=== PATIENT | female | born 2000 | race Caucasian/White ===

== ENCOUNTER 2020-09-12 20:08 | Emergency (ER) | payer OTHER ==
[2020-09-13 01:55] LABS: HEMOGLOBIN 12.5 gm/dl (12.3-15.3); RED BLOOD COUNT 4.53 M/UL (4.00-5.10); WHITE BLOOD COUNT 10.7 K/UL (4.5-11.0)
[2020-09-13 02:13] LABS: BUN/CREATININE RATIO 13 (0-10)
[2020-09-13] MEDS ORDERED: ONDANSETRON ODT4 MG SL (02:52)
[2020-09-13] MEDS ORDERED: CEPHALEXIN500 M1 PO (02:52)
== END 2020-09-13 04:14 | disposition home or self-care (01) ==
LOC: ER1 20:08
PROVIDERS: Physician Assistant
DX: O21.9 Vomiting of pregnancy, unspecified (principal); O99.281 Endocrine, nutritional and metabolic diseases complicating pregnancy, first trimester; E86.0 Dehydration; R55 Syncope and collapse; Z3A.01 Less than 8 weeks gestation of pregnancy; O16.1 Unspecified maternal hypertension, first trimester; Z79.899 Other long term (current) drug therapy
CPT/HCPCS: 80053; 81001; 83690; 84702; 85025; 93005; 96374; 96375; 99284; J1200; J2765; J7030

== ENCOUNTER 2021-04-24 16:38 | Inpatient (IN) | payer OTHER ==
[~2021-04-24] VITALS: Ht 160 cm; Wt 62.6 kg
[~2021-04-24 16:38] MED LIST: CEPHALEXIN500 M1 PO; ONDANSETRON ODT4 MG SL
[2021-04-24 17:45] LABS: HEMOGLOBIN 10.5 gm/dl (12.3-15.3); RED BLOOD COUNT 3.78 M/UL (4.00-5.10); WHITE BLOOD COUNT 11.7 K/UL (4.5-11.0)
[2021-04-24 20:01] LABS: BUN/CREATININE RATIO 8 (0-10)
[2021-04-25] MEDS ORDERED: IBUPROFEN800 MG PO (18:37)
[2021-04-25] MEDS ORDERED: COLACE100 MG PO (18:37)
[2021-04-25] MEDS ORDERED: HEMOCYTE324 MG PO (18:37)
[2021-04-26] MEDS ORDERED: PERCOCET 5/325 T1 EA PO (02:09)
[2021-04-26 18:53] LABS: HEMOGLOBIN 8.6 gm/dl (12.3-15.3)
[2021-04-26 19:00] LABS: RED BLOOD COUNT 3.16 M/UL (4.00-5.10); WHITE BLOOD COUNT 20.3 K/UL (4.5-11.0)
[2021-04-27 05:52] LABS: HEMOGLOBIN 9.1 gm/dl (12.3-15.3)
[2021-04-28 10:39] LABS: HEMOGLOBIN 8.3 gm/dl (12.3-15.3); RED BLOOD COUNT 3.02 M/UL (4.00-5.10)
== END 2021-04-28 15:03 | disposition home or self-care (01) | DRG 805 ==
LOC: GENOP 16:38 → OB 17:06
PROVIDERS: Obstetrics & Gynecology; ADMIT Obstetrics & Gynecology
PROC: 10E0XZZ Delivery of Products of Conception, External Approach (ICD-10-PCS; principal; 2021-04-24)
PROC: 10907ZC Drainage of Amniotic Fluid, Therapeutic from Products of Conception, Via Natural or Artificial Opening (ICD-10-PCS; 2021-04-24)
PROC: 4A1HXCZ Monitoring of Products of Conception, Cardiac Rate, External Approach (ICD-10-PCS; 2021-04-24)
PROC: 0W8NXZZ Division of Female Perineum, External Approach (ICD-10-PCS; 2021-04-26)
PROC: 3E033VJ Introduction of Other Hormone into Peripheral Vein, Percutaneous Approach (ICD-10-PCS; 2021-04-26)
PROC: 3E0234Z Introduction of Serum, Toxoid and Vaccine into Muscle, Percutaneous Approach (ICD-10-PCS; 2021-04-26)
PROC: 3E02340 Introduction of Influenza Vaccine into Muscle, Percutaneous Approach (ICD-10-PCS; 2021-04-26)
DX: O13.4 Gestational [pregnancy-induced] hypertension without significant proteinuria, complicating childbirth (principal); O41.1230 Chorioamnionitis, third trimester, not applicable or unspecified; Z20.822 Contact with and (suspected) exposure to COVID-19; Z37.0 Single live birth; O99.214 Obesity complicating childbirth; E66.9 Obesity, unspecified; Z3A.39 39 weeks gestation of pregnancy; Z23 Encounter for immunization
CPT/HCPCS: 36415; 80053; 81001; 82570; 83615; 84156; 84550; 85014; 85018; 85025; 85461; 86850; 86900; 86901; 90471; 90686; 90715; G0008; J0290; J0595; J1580; J2405; J2590; J2790; J7120; U0002